=== PATIENT | male | born 1965 | race Hispanic/Latino ===

== ENCOUNTER 2016-12-09 13:44 | Emergency (ER) | payer MEDICAID ==
[2016-12-09 13:44] VITALS: BMI 27.8
[2016-12-09 13:59] VITALS: RESP 18; TEMP 98.8
--- NOTE | 2016-12-09 14:57 | C.PDOC ---
History Of Present Illness Patient is a 51 year old male who presents to the ER with a complaint of reproducible right chest discomfort for the past week. Denies nausea, vomiting, or diarrhea. Time Seen by Provider: 12/09/16 14:46 Chief Complaint (Nursing): Chest Pain History Per: Patient History/Exam Limitations: no limitations Onset/Duration Of Symptoms: Days (7) Current Symptoms Are (Timing): Still Present Past Medical History Reviewed: Historical Data, Nursing Documentation, Vital Signs Vital Signs: Last Vital Signs Temp 98.8 F 12/09/16 13:56 Pulse 89 12/09/16 15:04 Resp 18 12/09/16 15:04 BP 114/69 12/09/16 15:04 Pulse Ox 99 12/09/16 15:04 - Medical History PMH: Anxiety, Arthritis (R hip), Asthma (BROCHIAL ASTHMA, ASTHMA ATTACK 1999, ,01.30.) - [facility] Procedures APPLICATION OF SPLINT (08/29/13) INJECT/INFUSE NEC (05/01/13) NEBULIZER THERAPY (07/11/14) REPLAC M/S IMMOB DEV NEC (08/30/13) Family History: States: Unknown Family Hx - Social History Hx Tobacco Use: No Hx Alcohol Use: No Hx Substance Use: No - Immunization History Hx Tetanus Toxoid Vaccination: No Hx Influenza Vaccination: Yes Hx Pneumococcal Vaccination: No Review Of Systems Except As Marked, All Systems Reviewed And Found Negative. Cardiovascular: Positive for: Chest Pain (right) Gastrointestinal: Negative for: Nausea, Vomiting, Diarrhea Physical Exam - Physical Exam Appears: Well, Non-toxic Skin: Normal Color, Warm, Dry, No Rash Head: Atraumatic, Normacephalic Oral Mucosa: Moist Chest: Symmetrical, Tenderness (upper, T2-T5) Cardiovascular: Rhythm Regular, No Murmur Respiratory: Normal Breath Sounds, No Rales, No Rhonchi, No Wheezing Gastrointestinal/Abdominal: Soft, No Tenderness Neurological/Psych: Oriented x3, Normal Speech, Normal Cognition ED Course And Treatment ECG: Interpreted By Me ECG Rhythm: Sinus Rhythm (94 bpm) ECG Interpretation: Normal Rate From EC O2 Sat by Pulse Oximetry: 96 Pulse Ox Interpretation: Normal Progress Note: Motrin PO administered. Medical Decision Making Medical Decision Making: digitally and positionally reproducable chest discomfort with normal ekg and no rash, c/w costochondritis, neg EST 1 yr ago Extensive xanax[place]arcotics [place] but none since 09/10- feels moderatey well controlled off Xanax Disposition Doctor Will See Patient In The: Office Counseled Patient/Family Regarding: Studies Performed, Diagnosis - Disposition Referrals: Gonzalez Terrazas MD [Staff Provider] - Disposition: HOME/ ROUTINE Disposition Time: 14:57 Condition: GOOD Additional Instructions: ice packs to affected are 1/2 hour per hour, nothing hot, no hot showers. Motrin 400-600 mg every 6 hours as needed Follow-up w your PMD or return to ED as needed. Instructions: Costochondritis (ED) - Clinical Impression Clinical Impression: Chest discomfort - Scribe Statement The provider has reviewed the documentation as recorded by the Scribmohamud Contreras All medical record entries made by the Scribe were at my direction and personally dictated by me. I have reviewed the chart and agree that the record accurately reflects my personal performance of the history, physical exam, medical decision making, and the department course for this patient. I have also personally directed, reviewed, and agree with the discharge instructions and disposition.
[2016-12-09 15:06] VITALS: BP 114/69; PULSE 89
[2016-12-09 20:12] VITALS: O2SAT 96
== END 2016-12-09 15:05 | disposition home or self-care (01) ==
LOC: C.ER 13:44
DX: R07.89 Other chest pain (principal)

== ENCOUNTER 2016-12-30 14:55 | Emergency (ER) | payer MEDICAID ==
[2016-12-30 15:06] VITALS: BMI 27.7
[2016-12-30 15:09] VITALS: RESP 20
--- NOTE | 2016-12-30 15:32 | C.PDOC ---
History Of Present Illness Patient is a 51 year old male who presents to the ER with a complaint of right sided chest pain that worsens with deep breaths for the last week. Patient was recently seen in the ER and discharged home, however, patient states the pain is still there. Patient denies fever, SOB, nausea, or any other symptoms. Time Seen by Provider: 12/30/16 15:20 Chief Complaint (Nursing): Chest Pain History Per: Patient History/Exam Limitations: no limitations Onset/Duration Of Symptoms: Days (7) Current Symptoms Are (Timing): Still Present Context: Other (Unknown) Quality: Other (Right sided chest pain) Associated Symptoms: denies: Nausea, Other (Fever or SOB) Modifying Factors: None Exacerbating Factors: Deep Breathing Alleviating Factors: None Past Medical History Reviewed: Historical Data, Nursing Documentation, Vital Signs Vital Signs: Last Vital Signs Temp 98.4 F 12/30/16 16:59 Pulse 94 H 12/30/16 16:59 Resp 20 12/30/16 16:59 BP 107/63 12/30/16 16:59 Pulse Ox 98 12/30/16 16:59 - Medical History PMH: Anxiety, Arthritis (R hip), Asthma (BROCHIAL ASTHMA, ASTHMA ATTACK 1999, ,01.30.) - [facility] Procedures APPLICATION OF SPLINT (08/29/13) INJECT/INFUSE NEC (05/01/13) NEBULIZER THERAPY (07/11/14) REPLAC M/S IMMOB DEV NEC (08/30/13) Family History: States: Unknown Family Hx - Social History Hx Tobacco Use: No Hx Alcohol Use: No Hx Substance Use: No - Immunization History Hx Tetanus Toxoid Vaccination: No Hx Influenza Vaccination: Yes Hx Pneumococcal Vaccination: No Review Of Systems Except As Marked, All Systems Reviewed And Found Negative. Constitutional: Negative for: Fever Cardiovascular: Positive for: Chest Pain (Right sided) Respiratory: Negative for: Shortness of Breath Gastrointestinal: Negative for: Nausea Physical Exam - Physical Exam Appears: Well, Non-toxic Skin: Normal Color, Warm, Dry Head: Atraumatic, Normacephalic Oral Mucosa: Moist Chest: Symmetrical, Tenderness (Focal right sided) Cardiovascular: Rhythm Regular, No Murmur Respiratory: Normal Breath Sounds, No Rales, No Rhonchi, No Wheezing Gastrointestinal/Abdominal: Soft, No Tenderness Neurological/Psych: Oriented x3, Normal Speech, Normal Cognition ED Course And Treatment - Laboratory Results Result Diagrams: 12/30/16 15:46 12/30/16 15:46 ECG: Interpreted By Me, Viewed By Me ECG Rhythm: Sinus Tachycardia Interpretation Of ECG: No acute ST/T wave changes. Rate From EC O2 Sat by Pulse Oximetry: 97 (Room air) Pulse Ox Interpretation: Normal Medical Decision Making Medical Decision Making: atypical cp r/o acs, vs pe, vs msk pain Plan: * EKG * Blood work * CXR * Toradol IVP * 540: pt with atypical pain x weeks. trop neg. no ekg changes. right sided pain. dimer neg. pt states has outpt f/u . advise continued outpt management and return precautions Disposition - Disposition Referrals: Michael Kenney MD [Staff Provider] - Disposition: HOME/ ROUTINE Disposition Time: 05:00 Condition: STABLE Additional Instructions: please follow up with your doctor and specialist. return to er with worsening symptoms or concenrs. Instructions: Chest Pain (ED) - Clinical Impression Clinical Impression: Chest pain - Scribe Statement The provider has reviewed the documentation as recorded by the Scribe Edvin Contreras All medical record entries made by the Scribe were at my direction and personally dictated by me. I have reviewed the chart and agree that the record accurately reflects my personal performance of the history, physical exam, medical decision making, and the department course for this patient. I have also personally directed, reviewed, and agree with the discharge instructions and disposition.
[2016-12-30 15:50] LABS: BASO # 0.1 K/uL (0.0-0.2); BASO % 0.8 % (0.0-2.0); EOS # 0.2 K/uL (0.0-0.7); EOS % 1.7 % (0.0-4.0); HEMATOCRIT 40.6 % (35.0-51.0); LYMPH # 1.8 K/uL (1.0-4.3); LYMPH % 20.1 % (20.0-40.0); MEAN CELL VOLUME 83.7 fL (80.0-94.0); MEAN CORPUSCULAR HEMOGLOBIN 26.8 pg (27.0-31.0); MEAN PLATELET VOLUME 7.4 fL (7.2-11.7); MONO # 0.7 K/uL (0.0-0.8); MONO % 7.3 % (0.0-10.0)
[2016-12-30 15:58] LABS: CHLORIDE 101 mmol/L (98-107)
[2016-12-30 15:59] LABS: POTASSIUM 4.3 mmol/L (3.6-5.2); SODIUM 136 mmol/L (132-148)
[2016-12-30 16:01] LABS: ALB/GLOB RATIO 1.3 (1.0-2.1); AST/SGOT 31 U/L (17-59); BILIRUBIN,TOTAL 0.2 mg/dL (0.2-1.3); CARBON DIOXIDE 26 mmol/L (22-30); GFR AFRICAN-AMERICAN > 60; INR 1.1; PARTIAL THROMBOPLASTIN TIME 28 SECONDS (21-34); TOTAL PROTEIN 6.6 g/dL (6.3-8.3)
[2016-12-30 16:02] LABS: ALKALINE PHOSPHATASE 53 U/L (38-126); ALT/SGPT 49 U/L (21-72); BLOOD UREA NITROGEN 14 mg/dL (9-20); CALCIUM 7.9 mg/dl (8.6-10.4); GLUCOSE,RANDOM 136 mg/dL (75-110)
--- NOTE | 2016-12-30 16:58 | RAD ---
HISTORY: chest pain COMPARISON: Chest x-ray performed 07/10/16 TECHNIQUE: Chest, one view. FINDINGS: Examination limited by habitus. LUNGS: No focal consolidation. Please note that chest x-ray has limited sensitivity for the detection of pulmonary masses. PLEURA: No significant pleural effusion identified. No definite pneumothorax . CARDIOVASCULAR: The cardiomediastinal silhouette appears within normal limits of size. OSSEOUS STRUCTURES: Chronic fracture deformity of the left 8th posterior rib. Degenerative changes of the spine. VISUALIZED UPPER ABDOMEN: Unremarkable. OTHER FINDINGS: None. IMPRESSION: No focal consolidation, significant pleural effusion, or definite pneumothorax identified.
[2016-12-30 17:00] VITALS: BP 107/63; PULSE 94; TEMP 98.4
[2016-12-30 17:41] VITALS: O2SAT 97
--- NOTE | 2016-12-31 10:19 | CARD ---
APPROVED REPORT EKG Measurement Heart [id number] <Conclusion> Sinus tachycardia Otherwise normal ECG
== END 2016-12-30 17:19 | disposition home or self-care (01) ==
LOC: C.ER 14:55
DX: R07.89 Other chest pain (principal)
CPT/HCPCS: 71010; 80053; 84484; 85025; 85378; 85610; 85730; 93005; 96374; 99285; J1885

== ENCOUNTER 2018-04-18 13:33 | Emergency (ER) | payer MEDICAID ==
[2018-04-18 13:33] VITALS: BMI 27.7
[2018-04-18 13:41] VITALS: BP 128/80; PULSE 81; RESP 18; TEMP 98.9; O2SAT 98
--- NOTE | 2018-04-18 13:59 | C.PDOC ---
History Of Present Illness 52 year old male presents to the emergency department with complaints of right- sided chest pain which began two days ago. Patient states that his pain is radiating towards the right and is worsened with deep breathing. Time Seen by Provider: 04/18/18 13:46 Chief Complaint (Nursing): Chest Pain History Per: Patient History/Exam Limitations: no limitations Onset/Duration Of Symptoms: Days (2) Current Symptoms Are (Timing): Still Present Quality: "Pain" Exacerbating Factors: Deep Breathing Past Medical History Reviewed: Historical Data, Nursing Documentation, Vital Signs Vital Signs: Last Vital Signs Temp 98.9 F 04/18/18 13:37 Pulse 81 04/18/18 13:37 Resp 18 04/18/18 13:37 BP 128/80 04/18/18 13:37 Pulse Ox 98 04/18/18 13:59 - Medical History PMH: Anxiety, Arthritis (R hip), Asthma (BROCHIAL ASTHMA, ASTHMA ATTACK 1999, ,01.30.) Denies: Diabetes, HTN Surgical History: No Surg Hx - [facility] Procedures APPLICATION OF SPLINT (08/29/13) INJECT/INFUSE NEC (05/01/13) NEBULIZER THERAPY (07/11/14) REPLAC M/S IMMOB DEV NEC (08/30/13) Family History: States: Unknown Family Hx - Social History Hx Tobacco Use: No Hx Alcohol Use: No Hx Substance Use: No - Immunization History Hx Tetanus Toxoid Vaccination: No Hx Influenza Vaccination: Yes Hx Pneumococcal Vaccination: No Review Of Systems Except As Marked, All Systems Reviewed And Found Negative. Cardiovascular: Positive for: Chest Pain Physical Exam - Physical Exam Appears: Non-toxic, No Acute Distress Skin: Warm, Dry, No Rash Head: Atraumatic, Normacephalic Eye(s): bilateral: Normal Inspection Neck: Normal, Supple Chest: Symmetrical, Tenderness (digitally reproducible pain to the right chest in the intercostal spaces along T3-T5. ), No Other (rash) Cardiovascular: Rhythm Regular, No Murmur Respiratory: Normal Breath Sounds, No Rales, No Rhonchi, No Wheezing Neurological/Psych: Oriented x3, Normal Speech, Normal Cognition ED Course And Treatment O2 Sat by Pulse Oximetry: 98 Medical Decision Making Medical Decision Making: Plan: EKG Motrin 600mg PO 11 prior presentations for same no sob digitally and positionally reproducable R anterior chest wall discomfort normal EKG no rash normal CArd echo 07/10 CT Chest neg for intrathoracic pathology 01/08 costochondritis with poor insight by pt no w/u indicated now. d/c with ice/NSAIDS Disposition Doctor Will See Patient In The: Office Counseled Patient/Family Regarding: Studies Performed, Diagnosis - Disposition Referrals: Gonzalez Terrazas MD [Staff Provider] - Disposition: HOME/ ROUTINE Disposition Time: 13:59 Condition: GOOD Additional Instructions: ice packs 1/2 hour per hour, nothing hot MOtrin 400-600 mg every 6 hours as needed for pain no heavy lifting for 1 week outpatient f/u as needed. Instructions: Costochondritis Forms: [employer] (Syriac) - Clinical Impression Clinical Impression: Chest wall discomfort - Scribe Statement The provider has reviewed the documentation as recorded by the Scribe (Franky Santoyo) Provider Attestation: All medical record entries made by the Scribe were at my direction and personally dictated by me. I have reviewed the chart and agree that the record accurately reflects my personal performance of the history, physical exam, medical decision making, and the department course for this patient. I have also personally directed, reviewed, and agree with the discharge instructions and disposition.
--- NOTE | 2018-04-21 16:53 | CARD ---
APPROVED REPORT Date of service: 04/18/2018 EKG Measurement Heart [id number] [place] [id number] <Conclusion> Normal sinus rhythm Normal ECG
== END 2018-04-18 14:12 | disposition home or self-care (01) ==
LOC: C.ER 13:33
DX: R07.89 Other chest pain (principal)

== ENCOUNTER 2018-05-11 13:28 | Emergency (ER) | payer MEDICAID ==
[2018-05-11 13:28] VITALS: BMI 27.7
[2018-05-11 13:51] VITALS: TEMP 98.3; O2SAT 99
[2018-05-11] MEDS: Albuterol-Ipratrop 3 mg / 0.5 (3 ml) UD IH SCH (15:22)
--- NOTE | 2018-05-11 15:40 | C.PDOC ---
History Of Present Illness 53-year-old male, presents to the emergency department with complaints of shortness of breath ongoing for the past few days. Patient states he was seen by his PMD prior to arrival and given the flu vaccine. Patient denies any fever or chills. PMD Dr. Terrazas Time Seen by Provider: 05/11/18 14:24 Chief Complaint (Nursing): Shortness Of Breath History Per: Patient History/Exam Limitations: no limitations Past Medical History Reviewed: Historical Data, Nursing Documentation, Vital Signs Vital Signs: Last Vital Signs Temp 98.3 F 05/11/18 13:46 Pulse 72 05/11/18 15:53 Resp 19 05/11/18 15:53 BP 124/72 05/11/18 15:53 Pulse Ox 99 05/11/18 16:13 - Medical History PMH: Anxiety, Arthritis (R hip), Asthma (BROCHIAL ASTHMA, ASTHMA ATTACK 1999, ,01.30.) - [facility] Procedures APPLICATION OF SPLINT (08/29/13) INJECT/INFUSE NEC (05/01/13) NEBULIZER THERAPY (07/11/14) REPLAC M/S IMMOB DEV NEC (08/30/13) Family History: States: No Known Family Hx - Social History Hx Tobacco Use: No Hx Alcohol Use: No Hx Substance Use: No - Immunization History Hx Tetanus Toxoid Vaccination: No Hx Influenza Vaccination: Yes (04/2018) Hx Pneumococcal Vaccination: No Review Of Systems Constitutional: Negative for: Fever, Chills Respiratory: Positive for: Shortness of Breath Physical Exam - Physical Exam Appears: Non-toxic, No Acute Distress Skin: Normal Color, Warm, Dry, No Rash Head: Atraumatic, Normacephalic Eye(s): bilateral: Normal Inspection Nose: Normal Oral Mucosa: Moist Lips: Normal Appearing Neck: Normal ROM Chest: Symmetrical Cardiovascular: Rhythm Regular, No Murmur Respiratory: Normal Breath Sounds, No Decreased Breath Sounds, No Accessory Muscle Use, No Wheezing Gastrointestinal/Abdominal: Soft, No Tenderness (Obese) Extremity: Normal ROM, No Deformity Neurological/Psych: Oriented x3, Normal Speech ED Course And Treatment O2 Sat by Pulse Oximetry: 99 Pulse Ox Interpretation: Normal (RA) Medical Decision Making Medical Decision Making: Plan: * Chest X-Ray * Duoneb * Reassess and Disposition Reassess: pt states he feels better. Lungs CTA B/L, he feels comfortable being discharged. He's instructed to return for any new or worsening symptoms. Disposition Counseled Patient/Family Regarding: Studies Performed, Need For Followup - Disposition Disposition Time: 16:11 Additional Instructions: Please follow up with your doctor. Instructions: Shortness of Breath (Dyspnea) (DC) Forms: [employer] (Syriac), General Discharge Instructions - POA Present On Arrival: None - Clinical Impression Clinical Impression: Dyspnea - Scribe Statement The provider has reviewed the documentation as recorded by the Scribe (Letty Parisi) Provider Attestation: All medical record entries made by the Scribe were at my direction and personally dictated by me. I have reviewed the chart and agree that the record accurately reflects my personal performance of the history, physical exam, medical decision making, and the department course for this patient. I have also personally directed, reviewed, and agree with the discharge instructions and disposition.
[2018-05-11 15:54] VITALS: BP 124/72; PULSE 72; RESP 19
--- NOTE | 2018-05-11 16:02 | RAD ---
HISTORY: asthma COMPARISON: Chest x-ray performed 12/30/16 TECHNIQUE: Chest PA and lateral FINDINGS: Examination limited by habitus. LUNGS: No focal consolidation. Please note that chest x-ray has limited sensitivity for the detection of pulmonary masses. PLEURA: No significant pleural effusion identified. No definite pneumothorax . CARDIOVASCULAR: Heart size appears within normal limits. OSSEOUS STRUCTURES: Chronic deformity of the left posterior 8th rib. VISUALIZED UPPER ABDOMEN: Unremarkable. OTHER FINDINGS: None. IMPRESSION: No significant interval change appreciated. See above.
== END 2018-05-11 16:37 | disposition home or self-care (01) ==
LOC: C.ER 13:28
DX: R06.00 Dyspnea, unspecified (principal)

== ENCOUNTER 2018-08-14 14:12 | Emergency (ER) | payer MEDICAID ==
[2018-08-14 14:12] VITALS: BMI 27.7
[2018-08-14] MEDS ORDERED: Albuterol-Ipratrop 3 mg / 0.5 (3 ml) UD INH STA (14:59)
[2018-08-14] MEDS ORDERED: Albuterol 0.083% Inhal Sol (2.5 mg/3 mL) UD IH STA (14:59)
[2018-08-14] MEDS ORDERED: Albuterol 0.083% Inhal Sol (2.5 mg/3 mL) UD ONE (15:24)
[2018-08-14] MEDS ORDERED: Albuterol-Ipratrop 3 mg / 0.5 (3 ml) UD ONE (15:24)
[2018-08-14 15:54] VITALS: PULSE 85
--- NOTE | 2018-08-14 16:05 | C.PDOC ---
History Of Present Illness 53 y/o male, w/PMhx of asthma and COPD, presents to the ER complaining of shortness of breath and wheezing which began in the morning today. Patient states that he has asthma exacerbation with seasonal changes.Patient reports that he had multiple prior admissions and he was intubated x4. He notes that his asthma has been controlled since 2007.He has mild non-productive cough. Denies having CP, fever, chills, nausea, and vomiting. Time Seen by Provider: 08/14/18 14:28 Chief Complaint (Nursing): Shortness Of Breath History Per: Patient History/Exam Limitations: no limitations Onset/Duration Of Symptoms: Hrs Current Symptoms Are (Timing): Still Present Severity: Moderate Past Medical History Reviewed: Historical Data, Nursing Documentation, Vital Signs Vital Signs: Last Vital Signs Temp 98.6 F 08/14/18 15:53 Pulse 85 08/14/18 15:53 Resp 20 08/14/18 15:53 BP 111/66 08/14/18 15:53 Pulse Ox 96 08/14/18 15:53 - Medical History PMH: Anxiety, Arthritis (R hip), Asthma (BROCHIAL ASTHMA, ASTHMA ATTACK 1999, ,06.08.) Denies: Diabetes, HTN Surgical History: No Surg Hx - [facility] Procedures APPLICATION OF SPLINT (08/29/13) INJECT/INFUSE NEC (05/01/13) NEBULIZER THERAPY (07/11/14) REPLAC M/S IMMOB DEV NEC (08/30/13) Family History: States: No Known Family Hx - Social History Hx Tobacco Use: No Hx Alcohol Use: No Hx Substance Use: No - Immunization History Hx Tetanus Toxoid Vaccination: No Hx Influenza Vaccination: Yes Hx Pneumococcal Vaccination: No Review Of Systems Except As Marked, All Systems Reviewed And Found Negative. Constitutional: Negative for: Fever, Chills Cardiovascular: Negative for: Chest Pain Respiratory: Positive for: Shortness of Breath, Wheezing Gastrointestinal: Negative for: Nausea, Vomiting Physical Exam - Physical Exam Appears: Non-toxic, No Acute Distress, Other (speaking in full sentences) Skin: Normal Color, Warm, Dry Head: Atraumatic, Normacephalic Eye(s): bilateral: Normal Inspection Nose: Normal Oral Mucosa: Moist Neck: Supple Chest: Symmetrical Cardiovascular: Rhythm Regular Respiratory: No Rales, No Rhonchi, Wheezing (very mild expiratory wheezing) Gastrointestinal/Abdominal: Soft, No Tenderness, No Guarding, No Rebound Extremity: Normal ROM, Other (no leg edema) Neurological/Psych: Oriented x3, Normal Speech ED Course And Treatment O2 Sat by Pulse Oximetry: 96 (RA) Pulse Ox Interpretation: Normal Progress Note: Patient treated with Albuterol and Prednisone PO. Disposition Counseled Patient/Family Regarding: Studies Performed, Diagnosis, Need For Foll owup, Rx Given - Disposition Referrals: Gonzalez Terrazas MD [Staff Provider] - Disposition: HOME/ ROUTINE Disposition Time: 16:35 Condition: STABLE Additional Instructions: FOLLOW UP WITH YOUR DOCTOR IN 1-2 DAYS USE MEDICATIONS DIRECTED RETURN TO ER IF SYMPTOMS WORSEN Prescriptions: Albuterol 0.5% [Albuterol 0.5% Inhal Caryl (2.5 mg/0.5 ml) UD] 2.5 mg IH Q6 PRN #1 bottle PRN Reason: Wheezing predniSONE [predniSONE Tab] 40 mg PO DAILY #8 tab Instructions: Asthma, Adult (DC) Forms: [employer] (Arabic) Print Language: BRAZILIAN - Clinical Impression Clinical Impression: Asthma exacerbation - Scribe Statement The provider has reviewed the documentation as recorded by the Scribe Sandra Billings Provider Attestation: All medical record entries made by the Scribe were at my direction and personally dictated by me. I have reviewed the chart and agree that the record accurately reflects my personal performance of the history, physical exam, medical decision making, and the department course for this patient. I have also personally directed, reviewed, and agree with the discharge instructions and disposition.
[2018-08-14 16:58] VITALS: BP 136/80; RESP 16; TEMP 98.8; O2SAT 100
== END 2018-08-14 16:58 | disposition home or self-care (01) ==
LOC: C.ER 14:12
DX: J45.901 Unspecified asthma with (acute) exacerbation (principal)

== ENCOUNTER 2018-10-05 14:22 | Emergency (ER) | payer MEDICAID ==
[2018-10-05 14:22] VITALS: BMI 27.7
[2018-10-05 14:51] VITALS: BP 120/75; PULSE 93; RESP 16; TEMP 98.5; O2SAT 97
--- NOTE | 2018-10-05 15:47 | C.PDOC ---
History Of Present Illness 53 y/o male presents to the ED complaining of pain to the left upper arm for 1 week. Denies associated trauma/injury. Patient thinks he may have slept on it wrong. States he took flexeril without relief, which he had leftover at home. Otherwise he has no numbness, paresthesias, or weakness to the arm. Denies prior hx of blood clots, chest pain, or SOB. Time Seen by Provider: 10/05/18 15:02 Chief Complaint (Nursing): Upper Extremity Problem/Injury History Per: Patient History/Exam Limitations: no limitations Onset/Duration Of Symptoms: Days Current Symptoms Are (Timing): Still Present Exacerbating Factor(s): Movement Past Medical History Reviewed: Historical Data, Nursing Documentation, Vital Signs Vital Signs: Last Vital Signs Temp 98.5 F 10/05/18 14:49 Pulse 93 H 10/05/18 14:49 Resp 16 10/05/18 14:49 BP 120/75 10/05/18 14:49 Pulse Ox 97 10/05/18 14:49 - Medical History PMH: Anxiety, Arthritis (R hip), Asthma (BROCHIAL ASTHMA, ASTHMA ATTACK 1999, ,01.30.) Denies: Diabetes, HTN - [facility] Procedures APPLICATION OF SPLINT (08/29/13) INJECT/INFUSE NEC (05/01/13) NEBULIZER THERAPY (07/11/14) REPLAC M/S IMMOB DEV NEC (08/30/13) Family History: States: Unknown Family Hx - Social History Hx Tobacco Use: No Hx Alcohol Use: No Hx Substance Use: No - Immunization History Hx Tetanus Toxoid Vaccination: No Hx Influenza Vaccination: Yes Hx Pneumococcal Vaccination: No Review Of Systems Constitutional: Negative for: Fever Cardiovascular: Negative for: Chest Pain Respiratory: Negative for: Cough, Shortness of Breath Gastrointestinal: Negative for: Vomiting Musculoskeletal: Positive for: Arm Pain (left upper arm) Skin: Negative for: Lesions, Bruising Neurological: Negative for: Weakness, Numbness, Incoordination Physical Exam - Physical Exam Appears: Well, Non-toxic, No Acute Distress Skin: Warm, Dry Head: Atraumatic, Normacephalic Eye(s): bilateral: Normal Inspection Neck: Normal ROM Chest: Symmetrical Respiratory: No Accessory Muscle Use, Other (Normal inspiratory effort) Extremity: Normal ROM (Ezequiel to flex and extend the elbow, range wrist, and internally rotate the arm without difficulty; Senior Executive Compensation Analyst strength equal bilaterally), Tenderness (overlying the left bicep muscle), No Deformity, Other (Pain is worse with rotation of left shoulder) Pulses: Left Radial: Normal, Right Radial: Normal Neurological/Psych: Oriented x3, Normal Motor, Normal Sensation Gait: Steady ED Course And Treatment O2 Sat by Pulse Oximetry: 97 (RA) Pulse Ox Interpretation: Normal Medical Decision Making Medical Decision Making: Impression: Spasm No trauma/injury to arm, imaging not clinically indicated at this time. Plan: Patient is stable for discharge home, provided with rx for Valium. Disposition Counseled Patient/Family Regarding: Diagnosis, Need For Followup, Rx Given - Disposition Disposition: HOME/ ROUTINE Disposition Time: 15:48 Condition: STABLE Additional Instructions: WILLEM ANN, thank you for letting us take care of you today. Your provider was Sonam Barrett MD and you were treated for LT ARM PAIN. The emergency medical care you received today was directed at your acute symptoms. If you were prescribed any medication, please fill it and take as directed. It may take several days for your symptoms to resolve. Return to the Emergency Department if your symptoms worsen, do not improve, or if you have any other problems. Please contact your doctor or call one of the physicians/clinics you have been referred to that are listed on the Patient Visit Information form that is included in your discharge packet. Bring any paperwork you were given at [facility] with you along with any medications you are taking to your follow up visit. Our treatment cannot replace ongoing medical care by a primary care provider outside of the emergency department. Thank you for allowing the [facility] team to be part of your care today. If you had an X-Ray or CT scan: A Radiologist will review the ED reading if any change in treatment is needed we will contact you. If you had a blood, urine, or wound culture: It will take several days for the results, if any change in treatment is needed we will contact you. If you had an STI test: It will take 48 hours for the results. Please call after 1 week if you have not heard back. Prescriptions: diaZEpam [Valium] 5 mg PO Q8H PRN #9 tab PRN Reason: Muscle Spasm Instructions: Muscle and Bone Pain (DC) Forms: [employer] ([place]) - Clinical Impression Clinical Impression: Left arm pain, Muscle spasm - Scribe Statement The provider has reviewed the documentation as recorded by the Christel Mroan Provider Attestation: All medical record entries made by the Rahelibmohamud were at my direction and personally dictated by me. I have reviewed the chart and agree that the record accurately reflects my personal performance of the history, physical exam, medical decision making, and the department course for this patient. I have also personally directed, reviewed, and agree with the discharge instructions and disposition.
== END 2018-10-05 15:53 | disposition home or self-care (01) ==
LOC: C.ER 14:22
DX: M62.838 Other muscle spasm (principal); M79.622 Pain in left upper arm